=== PATIENT | male | born 1960 | race American Indian/Alaskan Native ===

== ENCOUNTER 2024-05-15 21:46 | Inpatient (IN) | payer MEDICAID, OTHER ==
[~2024-05-15] VITALS: Ht 170.2 cm; Wt 100.0 kg
[2024-05-15] MEDS ORDERED: HYDR100C2 PO (22:35)
[2024-05-15] MEDS ORDERED: SERT-438 PO (22:35)
[2024-05-15] MEDS ORDERED: ZOLP-162 PO (22:35)
[2024-05-15] MEDS ORDERED: HYDR50CA6 PO (22:35)
[2024-05-15] MEDS ORDERED: LITH150C PO (22:35)
[2024-05-15] MEDS ORDERED: FLUT1BLS IH (22:35)
[2024-05-15 23:05] LABS: COVID AG,FIA SOURCE NASAL SWAB
[2024-05-15 23:30] LABS: SARS-COV2 (COVID) ANTIGEN,FIA Negative (Negative)
[2024-05-15] MEDS: ACETAMINOPHEN 500 MG TABLET PO ONE (23:52)
[2024-05-15] MEDS: DiphenhydrAMINE HCL 25 MG CAPSULE PO ONE (23:52)
[2024-05-15] MEDS: LORazepam 2 MG TABLET PO ONE (23:52)
[2024-05-16] MEDS ORDERED: IBUPROFEN 800 MG TABLET PO ONE
[2024-05-16] MEDS ORDERED: NICOTINE 7 MG/24 HOUR PATCH TD ONE
[2024-05-16] MEDS: IBUPROFEN 600 MG TABLET PO ONE (00:13)
[2024-05-16] MEDS: NICOTINE POLACRILEX 2 MG GUM CHEW ONE ×2 (00:13→21:35)
[2024-05-16] MEDS ORDERED: HALOPERIDOL 5 MG TABLET PO PRN (01:00)
[2024-05-16] MEDS ORDERED: SERT-440 PO (11:41)
[2024-05-16] MEDS: IBUPROFEN 800 MG TABLET PO ONE (12:45)
[2024-05-16 19:13] LABS: PH,URINE DRUG SCREEN 6.5 (5.0-8.0)
[2024-05-16 19:20] LABS: ALCOHOL, URINE DRUG SCREEN NEGATIVE (NEGATIVE); AMPHET/METH SCREEN,URINE NEGATIVE (NEGATIVE); BARBITURATE SCREEN, URINE NEGATIVE (NEGATIVE); BENZODIAZEPINES SCREEN,URINE NEGATIVE (NEGATIVE); CANNABINOID SCREEN,URINE POSITIVE (NEGATIVE); COCAINE SCREEN,URINE NEGATIVE (NEGATIVE); METHADONE SCREEN, URINE NEGATIVE (NEGATIVE); OPIATE SCREEN,URINE NEGATIVE (NEGATIVE); PHENCYCLIDINE SCREEN,URINE NEGATIVE (NEGATIVE)
[2024-05-16] MEDS: LORazepam 2 MG TABLET PO PRN (22:05)
[2024-05-17 01:35] VITALS: BP 145/99; PULSE 89; RESP 18; TEMP 98.7; O2SAT 96
[2024-05-17] MEDS: ZOLPIDEM TARTRATE 10 MG TABLET PO PRN (01:56)
[2024-05-17 08:14] VITALS: BP 152/89; PULSE 85; RESP 18; TEMP 97.7; O2SAT 96
[2024-05-17] MEDS ORDERED: PALIPERIDONE PALMITATE 234 MG/1.5 ML SYRINGE IM ONE (11:45)
[2024-05-17] MEDS ORDERED: GuaiFENesin/D-METHORPHAN [SUGAR-FREE] 200-20MG/10 ML SYRUP UDCUP PO PRN (11:45)
[2024-05-17] MEDS ORDERED: HydrOXYzine PAMOATE 50 MG CAPSULE PO PRN (11:45)
[2024-05-17] MEDS ORDERED: OLANZapine 5 MG RAPDIS TABLET PO PRN (11:45)
[2024-05-17] MEDS: CYANOCOBALAMIN 1,000 MCG/ML VIAL IM ONE (12:45)
[2024-05-17] MEDS: LOPERAMIDE HCL 2 MG CAPSULE PO PRN (13:24)
[2024-05-17] MEDS: HydrOXYzine PAMOATE 50 MG CAPSULE PO SCH (16:54)
[2024-05-17] MEDS: THIAMINE 100 MG TABLET PO SCH (16:56)
[2024-05-17] MEDS: LORazepam 1 MG TABLET PO PRN (19:57)
[2024-05-17 20:37] VITALS: BP 103/57; PULSE 82; TEMP 98; O2SAT 96
[2024-05-17] MEDS: MELATONIN 5 MG TABLET PO SCH (20:44)
[2024-05-17] MEDS ORDERED: DIVALPROEX SODIUM 500 MG ER TABLET PO SCH (21:00)
[2024-05-17] MEDS ORDERED: OLANZapine 5 MG RAPDIS TABLET PO SCH (21:00)
[2024-05-18 08:22] VITALS: BP 130/70; PULSE 67; RESP 17; TEMP 98.4; O2SAT 95
[2024-05-18] MEDS: MULTIVITAMINS WITH MINERALS, THERAPEUTIC TABLET PO SCH (09:35)
[2024-05-18] MEDS: LITHIUM CARBONATE 300 MG TABLET PO SCH (09:35)
[2024-05-18] MEDS: NALTREXONE HCL 50 MG TABLET PO SCH (09:35)
[2024-05-18] MEDS: OMEGA-3/DHA/EPA/FISH OIL 1,000 MG CAPSULE PO SCH (09:35)
[2024-05-18] MEDS: SERTRALINE HCL 50 MG TABLET PO SCH (09:35)
[2024-05-18] MEDS: FOLIC ACID 1 MG TABLET PO SCH (09:36)
[2024-05-18] MEDS ORDERED: NALT50TA33 PO (12:14)
[2024-05-18] MEDS ORDERED: MELA5TAB40 PO (12:14)
[2024-05-18] MEDS ORDERED: SERT-439 PO (12:14)
[2024-05-18] MEDS ORDERED: LITH300T PO (12:14)
[2024-05-18] MEDS ORDERED: OMEG-135 PO (12:14)
[2024-05-21] MEDS ORDERED: PALIPERIDONE PALMITATE 156 MG/ML SYRINGE IM ONE (09:00)
== END 2024-05-18 17:39 | disposition home or self-care (01) | DRG 750 ==
LOC: EMS 21:46 → B3A 05-17 01:25
PROVIDERS: ADMIT Psychiatry & Neurology Psychiatry; ATTEND Psychiatry & Neurology Psychiatry
PROC: GZHZZZZ Group Psychotherapy (ICD-10-PCS; principal; 2024-05-17)
PROC: GZ58ZZZ Individual Psychotherapy, Cognitive-Behavioral (ICD-10-PCS; 2024-05-17)
DX: F25.9 Schizoaffective disorder, unspecified (principal); R45.851 Suicidal ideations; J44.9 Chronic obstructive pulmonary disease, unspecified; Z20.822 Contact with and (suspected) exposure to COVID-19; F17.210 Nicotine dependence, cigarettes, uncomplicated; F32.A Depression, unspecified; F41.9 Anxiety disorder, unspecified; F12.20 Cannabis dependence, uncomplicated; Z91.51 Personal history of suicidal behavior; Z88.2 Allergy status to sulfonamides; Z59.00 Homelessness unspecified; Z65.3 Problems related to other legal circumstances; Z63.9 Problem related to primary support group, unspecified; Z59.9 Problem related to housing and economic circumstances, unspecified; Z55.9 Problems related to education and literacy, unspecified; Z79.899 Other long term (current) drug therapy
CPT/HCPCS: 80307; 99285; J3420; J2426; Z7502; Z7610